=== PATIENT | male | born 1965 | race Caucasian/White ===

== ENCOUNTER 2018-12-13 10:07 | Emergency (ER) | payer OTHER ==
[~2018-12-13] VITALS: Ht 180.3 cm; Wt 138.8 kg
[~2018-12-13 10:07] MED LIST: ACETAMINOPHEN325 M1 PO; ALBUTEROL2.5 MG/3 M IH; AMARYL4 MG PO; ASPIRIN81 M2 PO; BRILINTA90 MG PO; CARVEDILOL25 MG PO; CENTRUM COMPLE1 EACH PO; CEROVITE SENIO1 EACH PO; CLONAZEPAM 0.50.5 M1 PO; COLACE100 MG PO; COREG6.25 MG PO; CYMBALTA30 MG PO; CYMBALTA60 MG PO; DEMADEX20 MG PO; ENALAPRIL MALEA10 M1 PO; GLUCOPHAGE1000 MG PO; GLUCOPHAGE500 MG PO; GLUCOTROL10 MG PO; GLYCOLAX POWDER17 G1 PO; HYDROCHLOROTHIA25 M1 PO; HYDROCODON-ACE1 EAC7 PO; KLOR-CON20 ME1 PO; LASIX 40 MG TAB40 M1 PO; LATUDA40 MG PO; LEXAPRO 10 MG T10 M1 PO; LIPITOR 20 MG T20 M1 PO; LISINOPRIL10 MG PO; LISINOPRIL2.5 MG PO; LOPERAMIDE 2 MG2 M1 PO; MIDODRINE HCL 55 M1 PO; NITROSTAT0.4 M1 SUBLING; NORVASC 5 MG TAB5 MG PO; ONDANSETRON HCL4 M2 PO; PANTOPRAZOLE SO40 M1 PO; PLAVIX 75 MG TA75 M1 PO; POTASSIUM20 PO; PRAVACHOL40 MG PO; PRAVASTATIN SOD20 MG PO; PROMETHEGAN25 MG RC; PROPAFENONE 22225 M1 PO; PYRIDOSTIGMINE60 M1 PO; TORSEMIDE20 MG PO; TRANSDERM-SCO1 PATC1 TD; XANAX 0.5 MG0.5 M1 PO; XARELTO20 MG PO; XOPENEX0.63 MG/3 INH
[2018-12-13] MEDS ORDERED: VOLTAREN GEL 1100 G2 TOP (11:10)
[2018-12-13 11:34] VITALS: BP 152/68
== END 2018-12-13 11:23 | disposition home or self-care (01) ==
LOC: ER 10:07
DX: M25.562 Pain in left knee (principal); I10 Essential (primary) hypertension; F32.9 Major depressive disorder, single episode, unspecified; E11.9 Type 2 diabetes mellitus without complications; E78.00 Pure hypercholesterolemia, unspecified; I25.10 Atherosclerotic heart disease of native coronary artery without angina pectoris; G47.33 Obstructive sleep apnea (adult) (pediatric); E66.9 Obesity, unspecified; Z68.41 Body mass index [BMI] 40.0-44.9, adult; Z86.73 Personal history of transient ischemic attack (TIA), and cerebral infarction without residual deficits; Z90.89 Acquired absence of other organs

== ENCOUNTER 2019-01-24 10:19 | Inpatient (IN) | payer OTHER ==
[~2019-01-24] VITALS: Ht 180.3 cm; Wt 143.8 kg
[~2019-01-24 10:19] MED LIST changes: +VOLTAREN GEL 1100 G2 TOP
[2019-01-24 10:23] VITALS: BP 78/43
[2019-01-24 10:45] LABS: BASOPHILS 0.5 % (0.0-2.0); EOSINOPHILS 3.8 % (0.0-3.0); HEMATOCRIT 36.5 % (42.0-52.0); HEMOGLOBIN 12.2 gm/dL (14.0-18.0); LYMPHOCYTES 17.1 % (24.0-44.0); MCH 30.8 pg (26.0-34.0); MCHC 33.4 g/dL (28.0-37.0); MONOCYTES 5.5 % (1.0-8.0); PLATELET COUNT 364 thou/uL (150-400); POLYS 73.1 % (36.0-66.0); RBC 3.97 mil/uL (4.50-6.00); RDW 13.6 % (10.5-14.5)
[2019-01-24 10:53] LABS: ANION GAP 11 mmol/L (7-16); BUN 17 mg/dL (7-18); CALCIUM 9.5 mg/dL (8.5-10.1); CHLORIDE 105 mmol/L (98-107); CO2 26 mmol/L (21-32); CREATININE 1.5 mg/dL (0.7-1.3); GLUCOSE 213 mg/dL (74-106); POTASSIUM 4.8 mmol/L (3.5-5.1); SODIUM 142 mmol/L (136-145)
[2019-01-24 11:01] LABS: TROPONIN-I <0.06 ng/mL (<0.06)
[2019-01-24 12:17] VITALS: BP 117/54
[2019-01-24 12:22] VITALS: BP 107/50
[2019-01-24 13:06] VITALS: BP 101/41
--- NOTE | 2019-01-24 14:14 | EKG ---
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: JESSICA : 1965 Requested By: Sara Marquez Order Number: [id number] MD: Aj Henry Measurements Intervals [place] Rate: 79 P: 45 DC: 168 QRS: 54 QRSD: 121 T: -13 QT: 383 QTc: 440 Interpretive Statements Sinus rhythm IVCD Compared to ECG 08/18/2013 10:47:05 Possible ischemia no longer present Electronically Signed On 01-24-2019 14:14:11 CDT by Aj Henry [email or web address] ��������������������������������������������� <ELECTRONICALLY SIGNED> ���������������������������������������� By: Aj Henry MD ��������������������������������������������� 01/24/19 1414 33 33 Aj Henry MD /NAHOMY
--- NOTE | 2019-01-24 16:23 | NUR ---
PATIENT ARRIVED FROM ED 1230 FOR HYPOTESION AND LYNN. ALERT X4, DENIES PAIN, VSS, REPORTED DIZZINESS AT CARDIAC REHAB AND SENT TO ER FOR ADMISSION. NSR ON TELE, NO EDEMA, 2/2 PULSES. PLACED ON FALL PRECAUTIONS FOR HYPOTENTION. AMBULATES WITHOUT ASSISTANCE AT HOME. ADMISSION HISTORY AND ASSESMENT COMPLETED. ORDERS ACKNOWLDGED, ORRIENTED TO ROOM. FLUIDS STARTED. CALL LIGHT IN REACH.
[2019-01-24 20:16] VITALS: BP 143/65
[2019-01-25 04:51] VITALS: BP 145/65
[2019-01-25 05:26] LABS: CALCIUM 8.3 mg/dL (8.5-10.1); CREATININE 1.1 mg/dL (0.7-1.3); PHOSPHORUS 3.9 mg/dL (2.5-4.9); POTASSIUM 4.5 mmol/L (3.5-5.1)
--- NOTE | 2019-01-25 06:00 | NUR ---
Pt. rested quietly at intervals during the night when checked on during frequent rounds. He offers no c/o pain or nausea. No c/o chest pain. Bed alarm is on.
[2019-01-25 08:26] VITALS: BP 145/70
[2019-01-25 14:32] VITALS: BP 167/74
--- NOTE | 2019-01-25 14:51 | NUR ---
PT ADMITTED RELATED TO ORHTOSTSTIC BLOOD PRESSURE, LYNN. CM REVIEWED CHART AND SPOKE WITH CARE TEAM. CM MET WITH PT AT BEDSIDE THIS DAY. PT IS A&O X4. CM ROLE INTRODUED. PT INDICATED HE LIVES IN A HOUSE WITH HIS SPOUSE WITH 2 STEPS TO ENTER AND NO STEPS INSIDE. 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 PT INDICATED NO DME HX. PT INDICATED HE HAD BEEN GOING TO CARDIAC REHAB HERE AT [facility]. PT INDICATED HE ANTICPATES RETURNING HOME ONCE MEDICALLY STABLE. CM TO FOLLOW INDICATED WITH DC PLANNING.
--- NOTE | 2019-01-25 16:40 | NUR ---
ASSUMED CARE 0700. ALERT X4, VOICED HE SLEPT WELL. VSS, DENIES PAIN. HAS DIZZINES WHEN PT WALKED THE HALLWAY WITH NURSE. NOTIFIED DR VANESSA OF [facility].CONTINUE TO MONOTOR BP AND DIZZINESS WITH AMBULATION. DENIES CHEST PAIN. FALL PRECATIONS IN PLACE. CALLS APPROPRIATLEY.
[2019-01-25 19:48] VITALS: BP 128/59
[2019-01-25 21:18] LABS: URINE BILIRUBIN NEGATIVE (Negative); URINE BLOOD NEGATIVE (Negative); URINE CLARITY CLEAR; URINE COLOR YELLOW; URINE GLUCOSE-RANDOM* NEGATIVE (Negative); URINE KETONES NEGATIVE (Negative); URINE LEUKOCYTES-REFLEX NEGATIVE (Negative); URINE NITRITE-REFLEX NEGATIVE (Negative); URINE PROTEIN (DIPSTICK) NEGATIVE (Negative); URINE SPECIFIC GRAVITY 1.015 (1.005-1.035); URINE UROBILINOGEN 0.2 E.U./dl (0.2-1.0)
[2019-01-26 03:33] VITALS: BP 166/61
--- NOTE | 2019-01-26 04:35 | NUR ---
Pt. rested quietly during the night when checked on during frequent rounds. He offers no c/o pain or nausea. Bed alarm is on.
[2019-01-26 07:01] VITALS: BP 176/68
[2019-01-26 10:34] VITALS: BP 176/68
--- NOTE | 2019-01-26 11:03 | NUR ---
Nutrition: Admitted for hypotension, LYNN. Seen for BMI 45.7=Class III obesity. Reports pretty good appetite with 75-80% intake. UBW 307, current 317. States intentional wt loss of 40 lbs x4 months by "cutting back". Offered education, pt refused. Being d/c today.
== END 2019-01-26 11:39 | disposition home or self-care (01) | DRG 314 ==
LOC: ER 10:19 → EROBS 11:58 → 4W 11:58 → ENTRNSPT 01-26 11:12 → EDTRNSPTSTS 01-26 11:14 → 4W 01-26 11:39
PROVIDERS: Emergency Medicine; ADMIT Hospitalist
DX: I95.9 Hypotension, unspecified (principal); N17.0 Acute kidney failure with tubular necrosis; Z68.41 Body mass index [BMI] 40.0-44.9, adult; E44.1 Mild protein-calorie malnutrition; E78.00 Pure hypercholesterolemia, unspecified; E86.0 Dehydration; F32.9 Major depressive disorder, single episode, unspecified; I11.0 Hypertensive heart disease with heart failure; G47.33 Obstructive sleep apnea (adult) (pediatric); E78.5 Hyperlipidemia, unspecified; E11.9 Type 2 diabetes mellitus without complications; I50.9 Heart failure, unspecified; I25.10 Atherosclerotic heart disease of native coronary artery without angina pectoris; E66.9 Obesity, unspecified; Z79.84 Long term (current) use of oral hypoglycemic drugs; Z86.73 Personal history of transient ischemic attack (TIA), and cerebral infarction without residual deficits; Z79.82 Long term (current) use of aspirin
CPT/HCPCS: 10045

== ENCOUNTER 2019-02-19 11:30 | Emergency (ER) | payer OTHER ==
[~2019-02-19] VITALS: Ht 180.3 cm; Wt 139.3 kg
[2019-02-19 11:32] VITALS: BP 146/75
[2019-02-19] MEDS ORDERED: NORCO 5-325 TA1 EACH PO (12:18)
== END 2019-02-19 12:57 | disposition home or self-care (01) ==
LOC: ER 11:30
DX: M54.42 Lumbago with sciatica, left side (principal); I10 Essential (primary) hypertension; E11.9 Type 2 diabetes mellitus without complications; E78.00 Pure hypercholesterolemia, unspecified; I25.10 Atherosclerotic heart disease of native coronary artery without angina pectoris; G47.33 Obstructive sleep apnea (adult) (pediatric); Z86.73 Personal history of transient ischemic attack (TIA), and cerebral infarction without residual deficits; Z79.899 Other long term (current) drug therapy

== ENCOUNTER 2019-05-02 09:36 | Emergency (ER) | payer OTHER ==
[~2019-05-02] VITALS: Ht 162.6 cm; Wt 116.1 kg
[~2019-05-02 09:36] MED LIST changes: +NORCO 5-325 TA1 EACH PO
[2019-05-02] MEDS ORDERED: NORCO 5-325 TA1 EAC1 PO (14:27)
[2019-05-02 14:34] VITALS: BP 149/79
== END 2019-05-02 14:56 | disposition home or self-care (01) ==
LOC: ER 09:36
DX: M25.572 Pain in left ankle and joints of left foot (principal); M25.562 Pain in left knee; I10 Essential (primary) hypertension; F32.9 Major depressive disorder, single episode, unspecified; E11.9 Type 2 diabetes mellitus without complications; E78.00 Pure hypercholesterolemia, unspecified; I25.10 Atherosclerotic heart disease of native coronary artery without angina pectoris; G47.33 Obstructive sleep apnea (adult) (pediatric); Z90.89 Acquired absence of other organs; Z86.73 Personal history of transient ischemic attack (TIA), and cerebral infarction without residual deficits; W01.0XXA Fall on same level from slipping, tripping and stumbling without subsequent striking against object, initial encounter; Y92.89 Other specified places as the place of occurrence of the external cause; Y93.89 Activity, other specified; Y99.8 Other external cause status

== ENCOUNTER → 2019-05-23 | Outpatient (CLI) | payer OTHER ==
[~2019-05-23] MED LIST changes: +NORCO 5-325 TA1 EAC1 PO
== END ==
LOC: MRI 13:51
DX: S82.492A Other fracture of shaft of left fibula, initial encounter for closed fracture (principal); S83.282A Other tear of lateral meniscus, current injury, left knee, initial encounter; S83.242A Other tear of medial meniscus, current injury, left knee, initial encounter; M17.12 Unilateral primary osteoarthritis, left knee; X58.XXXA Exposure to other specified factors, initial encounter; Y93.89 Activity, other specified; Y92.89 Other specified places as the place of occurrence of the external cause; Y99.8 Other external cause status

== ENCOUNTER 2019-09-23 22:10 | Emergency (ER) | payer OTHER ==
[~2019-09-23] VITALS: Ht 180.3 cm; Wt 144.2 kg
[2019-09-23 22:12] VITALS: BP 144/65
== END 2019-09-23 22:37 | disposition home or self-care (01) ==
LOC: ER 22:10
DX: S81.831A Puncture wound without foreign body, right lower leg, initial encounter (principal); E66.9 Obesity, unspecified; I10 Essential (primary) hypertension; E11.9 Type 2 diabetes mellitus without complications; E78.00 Pure hypercholesterolemia, unspecified; I25.10 Atherosclerotic heart disease of native coronary artery without angina pectoris; Z79.82 Long term (current) use of aspirin; Z79.899 Other long term (current) drug therapy; Z86.73 Personal history of transient ischemic attack (TIA), and cerebral infarction without residual deficits; W46.1XXA Contact with contaminated hypodermic needle, initial encounter; Y93.89 Activity, other specified; Y92.89 Other specified places as the place of occurrence of the external cause; Y99.9 Unspecified external cause status

== ENCOUNTER 2020-03-20 19:41 | Inpatient (IN) | payer OTHER ==
[~2020-03-20] VITALS: Ht 152.4 cm; Wt 162.0 kg
[2020-03-20 19:58] VITALS: BP 164/100
[2020-03-20 20:24] LABS: ABSOLUTE NEUTROPHILS 6.2 thou/uL (1.4-8.2); BASOPHILS 0.8 % (0.0-2.0); EOSINOPHILS 5.3 % (0.0-3.0); HEMATOCRIT 43.8 % (42.0-52.0); HEMOGLOBIN 14.6 gm/dL (14.0-18.0); MCH 29.3 pg (26.0-34.0); MCHC 33.4 g/dL (28.0-37.0); MCV 87.6 fL (80.0-100.0); MONOCYTES 10.5 % (1.0-8.0); PLATELET COUNT 316 thou/uL (150-400); POLYS 61.4 % (36.0-66.0); RBC 5.01 mil/uL (4.50-6.00); RDW 14.1 % (10.5-14.5); WBC 10.1 thou/uL (4.0-11.0)
--- NOTE | 2020-03-20 20:30 | NUR ---
Report given to HILARIA Lund
--- NOTE | 2020-03-20 20:31 | NUR ---
XRAY AT BEDSIDE
[2020-03-20 20:33] LABS: ANION GAP 4 mmol/L (7-16); BUN 17 mg/dL (7-18); CALCIUM 8.8 mg/dL (8.5-10.1); CHLORIDE 98 mmol/L (98-107); CO2 33 mmol/L (21-32); CREATININE 1.7 mg/dL (0.7-1.3); GLUCOSE 102 mg/dL (74-106); POTASSIUM 4.2 mmol/L (3.5-5.1); SODIUM 135 mmol/L (136-145)
[2020-03-20 20:38] LABS: APTT 26.9 Seconds (24.5-32.8); PROTIME 10.5 Seconds (9.3-11.4)
[2020-03-20 20:44] LABS: ALBUMIN 3.2 g/dL (3.4-5.0); MAGNESIUM 1.7 mg/dL (1.8-2.4); SGOT 23 U/L (15-37); SGPT 17 U/L (30-65); TOTAL BILIRUBIN 0.4 mg/dL (0.2-1.0); TOTAL PROTEIN 7.2 g/dL (6.4-8.2); TROPONIN-I <0.06 ng/mL (<0.06)
[2020-03-20] MEDS ORDERED: KLOR-CON M2020 MEQ PO (22:11)
[2020-03-20] MEDS ORDERED: TORSEMIDE10 MG PO (22:16)
[2020-03-20] MEDS ORDERED: MUCINEX DM ER1 EACH PO (22:19)
[2020-03-20] MEDS ORDERED: MELATONIN3 M1 PO (22:21)
[2020-03-20] MEDS ORDERED: B-125000 MC2 PO (22:22)
[2020-03-20 23:38] VITALS: BP 157/71
[2020-03-20] MEDS ORDERED: testosterone inj INJECTION (23:38)
[2020-03-21 00:13] VITALS: BP 136/78
[2020-03-21 04:58] VITALS: BP 137/72
--- NOTE | 2020-03-21 05:30 | NUR ---
PT WAS AN ER ADMIT. PT IS ADMITTED WITH SOA. DENIES ANY PAIN. PT IS STABLE. PT IS ON 2L NC. ADMISSION ASSESMENT AND DOCUMENTATION COMPLETED. PT IS ALERT AND ORIENTED. PT IS NSR ON THE MONITOR, DENIES CHEST PAIN. PT IS AMBULATORY. PT IS SEEN BY [facility]. VITAL SIGNS STABLE. SCHEDULED MEDS ADMINISTERED TO PT. CONTINUE TO MONITOR PT. DENIES ANY FURTHER NEEDS AT THIS TIME.
[2020-03-21 08:00] VITALS: BP 141/75
[2020-03-21 08:29] LABS: ABSOLUTE NEUTROPHILS 5.9 thou/uL (1.4-8.2); BASOPHILS 0.7 % (0.0-2.0); EOSINOPHILS 4.1 % (0.0-3.0); HEMATOCRIT 43.7 % (42.0-52.0); HEMOGLOBIN 14.2 gm/dL (14.0-18.0); LYMPHOCYTES 17.9 % (24.0-44.0); MCH 28.6 pg (26.0-34.0); MCHC 32.4 g/dL (28.0-37.0); MCV 88.5 fL (80.0-100.0); MONOCYTES 11.3 % (1.0-8.0); PLATELET COUNT 322 thou/uL (150-400); RBC 4.94 mil/uL (4.50-6.00); RDW 14.5 % (10.5-14.5)
[2020-03-21 08:46] LABS: CALCIUM 8.8 mg/dL (8.5-10.1); CREATININE 1.4 mg/dL (0.7-1.3); MAGNESIUM 2.4 mg/dL (1.8-2.4); POTASSIUM 4.7 mmol/L (3.5-5.1)
[2020-03-21 09:17] LABS: BE(vivo) 2.1 mmol/L (-2 to +3); HCO3 27.9 mmol/L (22.0-26.0); PCO2 47.7 mmHg (35.0-45.0); PO2 69.6 mmHg (80.0-100.0); pH 7.385 (7.360-7.450); sO2 93.6 % (92.0-98.0)
[2020-03-21 12:00] VITALS: BP 144/64
--- NOTE | 2020-03-21 14:45 | 2DMMODE ---
[facility] [place] [address] 2 D/M-MODE ECHOCARDIOGRAM Name: SARA BLISS Room #: 210-P ADM IN M.R.#: [id number] Admission: 03/20/20 Attend Phys: Antonella Wilkinson Diana Discharge: Date of : 63 Report #: [id number] THIS REPORT FOR: cc: Ricardo Harman David J. DO Park,Michael Sullivan MD ~ APPROVED REPORT Study performed: 03/21/2020 12:55:50 EXAM: Comprehensive 2D, Doppler, and color-flow Echocardiogram Patient Location: Bedside Room #: 212 Status: routine BSA: 2.68 HR: 77 bpm BP: 144/88 mmHg Rhythm: NSR Other Information Study Quality: Fair Technically limited study due to morbid obesity. Indications Atrial flutter. Hx: CAD, stent, ISCM, Afib, HTN, HLP, DM. Echo Enhancing Agent Indication: Endocardial border delineation Agent(s) / Amount(s) Used: Optison 10 cc 2D Dimensions RVDd: 43.70 mm IVSd: 12.05 (7-11mm) LVOT Diam: 23.89 (18-24mm) LVDd: 58.18 mm PWd: 12.23 (7-11mm) Ascending Ao: 36.33 (22-36mm) LVDs: 45.80 (25-40mm) Aortic Root: 38.78 mm Volumes Left Atrial Volume (Systole) Single Plane 4CH: 78.57 mL Single Plane 2CH: 118.29 mL LA ESV Index: 39.00 mL/m2 [facility] [address] [address] 2 D/M-MODE ECHOCARDIOGRAM Name: SARA BLISS Room #: 210-P [facility] IN ..#: [id number] Admission: 03/20/20 Attend Phys: Antonella Amaya Discharge: Date of : 63 Report #: [id number] Aortic Valve AoV Peak Misbah.: 1.31 m/s AO Peak Gr.: 6.84 mmHg LVOT Max P.10 mmHg LVOT Max V: 1.01 m/s LIBIA Vmax: 3.47 cm2 Mitral Valve E/A Ratio: 1.4 MV Decel. Time: 176.85 ms MV E Max Misbah.: 1.16 m/s MV A Misbah.: 0.83 m/s MV PHT: 51.29 ms IVRT: 79.58 ms Pulmonary Valve PV Peak Misbah.: 0.98 m/s PV Peak Gr.: 3.86 mmHg Pulmonary Vein P Vein S: 0.41 m/s P Vein A: 0.28 m/s P Vein D: 0.47 m/s P Vein A Dur.: 103.8 msec P Vein S/D Ratio: 0.87 Tricuspid Valve RAP Estimate: 5.00 mmHg Left Ventricle Left ventricle is at the upper limits of normal. Mild concentric left ventricular hypertrophy. Left ventricular systolic function is mildly decreased. LVEF is 45-50%. Moderate diastolic dysfunction is present. Right Ventricle Right ventricle is not well visualized but appears normal in function. Atria Left atrium is mildly dilated. Right atrium is mildly dilated. Aortic Valve The aortic valve is normal in structure. No aortic regurgitation is present. There is no aortic valvular stenosis. Mitral Valve The mitral valve is normal in structure. There is no mitral valve regurgitation noted. No evidence of mitral valve stenosis. [facility] [address] [place] [address] 2 D/M-MODE ECHOCARDIOGRAM Name: IZAIAHSARA Dacia Room #: 210-P [facility] IN M.R.#: [id number] Admission: 03/20/20 Attend Phys: Antonella Amaya Discharge: Date of : 63 Report #: [id number] Tricuspid Valve Tricuspid valve is not well visualized. Difficult to asses for regurgitation. Unable to assess PA pressure. Pulmonic Valve Pulmonic valve is not well visualized. Trace pulmonic regurgitation. Great Vessels Aortic root is mildly dilated at 3.9cm. Ascending aorta is not well visualized. IVC is normal in size and collapses >50% with inspiration. Pericardium There is no pericardial effusion. <Conclusion> Left ventricle is at the upper limits of normal. Mild concentric left ventricular hypertrophy. Left ventricular systolic function is mildly decreased. LVEF is 45-50%. Moderate diastolic dysfunction is present. Right ventricle is not well visualized but appears normal in function. Left atrium is mildly dilated. The aortic valve is normal in structure. There is no mitral valve regurgitation noted. Unable to assess PA pressure. <ELECTRONICALLY SIGNED> By: Michael Gross MD 03/21/20 1444 1444 1444 Michael Gross MD /INF
--- NOTE | 2020-03-21 15:42 | NUR ---
spoke with patient via phone. Phys reports mask for bipap broken. Patient reports it is cracked he does not know who serviced mask. He reports BIPAP from [employer] but mask from a different company, his might know. Sp with she does not know. She reports they used a different company as [employer] customer service not good. Reported to retrieve new mask best to use [employer] as he is in system otherwise need to locate out patient sleep study. agreeable to use [employer] if can get him what he needs. sp with MJ at [facility] who reports BIPAP since 2013 likely can rec a new BIPAP and mask. Rec script and Dr Parson signed faxed back to [facility] with pertinent information to review.
[2020-03-21 16:00] VITALS: BP 134/69
--- NOTE | 2020-03-21 16:03 | EKG ---
[facility] [place] [place] [address] ELECTROCARDIOGRAM REPORT Name: SARA BLISS Room #: 210-P ADM IN M.R.#: [id number] Admission: 03/20/20 Attend Phys: Antonella Leavitt Discharge: Date of : 63 Report #: [id number] THIS REPORT FOR: cc: Ricardo Harman David J. DO Lundgren, Craig H. 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 : 1965 Requested By: Ministerio Chávez Order Number: [id number] MD: Saad Maldonado Measurements Intervals [place] Rate: 152 P: 56 PA: 91 QRS: 52 QRSD: 124 T: -88 QT: 311 QTc: 495 Interpretive Statements Atrial flutter with 2:1 conduction Nonspecific intraventricular conduction delay Nonspecific ST and T wave abnormality Baseline wander in lead(s) V2,V3,V4,V5,V6 Compared to ECG 01/24/2019 10:34:38 Atrial flutter has replaced sinus rhythm Electronically Signed On 03-21-2020 16:01:56 CDT by Saad Maldonado [email or web address] <ELECTRONICALLY SIGNED> By: Saad Maldonado MD, [facility] 03/21/20 1601 03 03 Saad Maldonado MD, [facility] /EPI
--- NOTE | 2020-03-21 16:03 | EKG ---
[facility] [place] [address] [place] [address] ELECTROCARDIOGRAM REPORT Name: SARA BLISS Room #: 210-P ADM IN M.R.#: [id number] Admission: 03/20/20 Attend Phys: Antonella Leavitt Discharge: Date of : 63 Report #: [id number] THIS REPORT FOR: cc: Ricardo Harman David J. DO Lundgren,Saad Martinez MD [facility] ~ THIS REPORT FOR: //name// [facility] ED Test Date: 2020-03-20 Test Time: 20:04:58 Pat Name: SARA BLISS Department: Room: 210 Gender: M Actuary: JUAN A : 1965 Requested By: Ministerio Chávez Order Number: [id number] MD: Saad Maldonado Measurements Intervals [place] Rate: 153 P: [place]: QRS: 56 QRSD: 125 T: -88 QT: 320 QTc: 511 Interpretive Statements Atrial flutter with predominant 2:1 AV block Nonspecific intraventricular conduction delay Nonspecific ST and T wave abnormality Compared to ECG 01/24/2019 10:34:38 No significant change was found Electronically Signed On 03-21-2020 16:02:20 CDT by Saad Maldonado [email or web address] <ELECTRONICALLY SIGNED> By: Saad Maldonado MD, [facility] 03/21/20 1602 03 03 Saad Maldonado MD, F[facility] /EPI
--- NOTE | 2020-03-21 16:05 | EKG ---
[facility] [place] [address] [place] [address] ELECTROCARDIOGRAM REPORT Name: SARA BLISS Room #: 210-P ADM IN M.R.#: [id number] Admission: 03/20/20 Attend Phys: Antonella Leavitt Discharge: Date of : 63 Report #: [id number] THIS REPORT FOR: cc: Ricardo Harman David J. 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: : 1965 Requested By: Ministerio Chávez Order Number: [id number] MD: Saad Maldonado Measurements Intervals [place] Rate: 100 P: 46 FL: 154 QRS: 42 QRSD: 112 T: -24 QT: 350 QTc: 452 Interpretive Statements Sinus tachycardia Nonspecific ST segment abnormality Compared to ECG 01/24/2019 10:34:38 Sinus rhythm has replaced atrial flutter Electronically Signed On 03-21-2020 16:03:59 CDT by Saad Maldonado [email or web address] <ELECTRONICALLY SIGNED> By: Saad Maldonado MD, [facility] 03/21/20 1603 51 51 Saad Maldonado MD, [facility] /EPI
--- NOTE | 2020-03-21 17:18 | NUR ---
ASSUMMED PT CARE AT APPROXIMATELY 0700. PT A&O X4. ASSESSMENT CHARTED. FALL PRECAUTIONS IN PLACE. PT DENIES HAVING CHEST PAIN. PT STATED HE HAS SOB ON EXERSION. O2 SATS STABLE. PT DENIES HAVING ACUTE PAIN. VITAL SIGNS STABLE. BLOOD SUGARS STABLE. PT AMBULATES STEADY. PT COMFORTABLE. PT DENIES HAVING FURTHER CONCERNS.
[2020-03-21 19:45] VITALS: BP 155/88
[2020-03-22] VITALS (8 sets, daily range): BP systolic 135–160; BP diastolic 68–92
[2020-03-22 01:07] LABS: GLYCOHEMOGLOBIN (HGB A1C) 7.3 % (4.8-5.6)
--- NOTE | 2020-03-22 05:23 | NUR ---
ASSUMED PT CARE AT 1900. NO SIGN OF DISTRESS NOTE. PT IS ALERT AND ORIENTED. PT IS STABLE. VITAL SIGNS STABLE. PT IS AMBULATORY. ASSESSMENT COMPLETED AND DOCUMENTED. SCHEDULED MEDS AMDINISTERED TO PT. PT IS NPO AFTER MIDNIGHT FOR A STRESS TEST. VERBALIZES UNDERSTANDING. NO SIGN OF DISTRESS NOTED IN PT. CONTINUE TO MONITOR.
[2020-03-22 09:06] LABS: CALCIUM 8.5 mg/dL (8.5-10.1); CREATININE 1.3 mg/dL (0.7-1.3); POTASSIUM 4.6 mmol/L (3.5-5.1)
[2020-03-22] MEDS ORDERED: XARELTO20 MG PO (11:17)
[2020-03-22] MEDS ORDERED: OXYGEN MISCELL ×5 (14:03→14:23)
--- NOTE | 2020-03-22 15:58 | NUR ---
Consult rec'd to setup home o2. Pt needing 2liters with exertion. Script and RT exercise sats faxed to [facility] and their liason was notified to bring the pt a portable tank. [facility] is also working with the pt to provide a new bipap mask. Pt dcing home this afternoon once his tank arrives.
--- NOTE | 2020-03-22 16:40 | NUR ---
ASSUMMED PT CARE AT APPROXIMATELY 0700. PT A&O X4. ASSESSMENT CHARTED. FALL PRECAUTIONS IN PLACE. PT DENIES HAVING CHEST PAIN. PT STATED HE HAS SOB ON EXERSION. RT AMBULATION/OXYGEN STUDY RECOMMENDED 2 L O2. PT RECEIVING PORTABLE O2 FOR HOME. VITAL SIGNS STABLE. BLOOD SUGARS STABLE. PT DISCHARGING HOME C SELF CARE. IV DC. TELE DC. PT RECEIVED DISCHARGE EDUCATION. PT STATED UNDERSTANDING AND DENIED HAVING FURTHER QUESTIONS. PT AMBULATES STEADY/INDEPENDENT. PT RECEIVING HOSPITAL TRANSPORT OFF UNIT. PT COMFORTABLE. PT DENIES HAVING FURTHER CONCERNS.
== END 2020-03-22 15:30 | disposition home or self-care (01) | DRG 308 ==
LOC: ER 19:41 → 2N 23:06 → EROBS 23:06 → 2N 03-21 00:08
PROVIDERS: Emergency Medicine; Nurse Practitioner; Nurse Practitioner Family; ADMIT Hospitalist; ATTEND Hospitalist
DX: I47.2 Ventricular tachycardia (principal); J96.01 Acute respiratory failure with hypoxia; N17.0 Acute kidney failure with tubular necrosis; E87.3 Alkalosis; Z68.44 Body mass index [BMI] 60.0-69.9, adult; I42.9 Cardiomyopathy, unspecified; I48.92 Unspecified atrial flutter; I10 Essential (primary) hypertension; F32.9 Major depressive disorder, single episode, unspecified; E11.9 Type 2 diabetes mellitus without complications; E66.9 Obesity, unspecified; E78.00 Pure hypercholesterolemia, unspecified; G47.33 Obstructive sleep apnea (adult) (pediatric); I25.10 Atherosclerotic heart disease of native coronary artery without angina pectoris; I48.91 Unspecified atrial fibrillation; E78.5 Hyperlipidemia, unspecified; E83.42 Hypomagnesemia; E66.01 Morbid (severe) obesity due to excess calories; Z86.73 Personal history of transient ischemic attack (TIA), and cerebral infarction without residual deficits; Z82.49 Family history of ischemic heart disease and other diseases of the circulatory system; Z79.82 Long term (current) use of aspirin; Z79.899 Other long term (current) drug therapy
CPT/HCPCS: 10081